=== PATIENT | male | born 1980 | race Two or more races ===

== ENCOUNTER 2023-11-03 23:33 | Emergency (ER) | payer OTHER ==
[~2023-11-03] VITALS: Ht 180.3 cm; Wt 106.6 kg
[2023-11-03] MEDS ORDERED: APRESOLINE 10MG10 MG PO (23:55)
[2023-11-03] MEDS ORDERED: ISOSORBIDE DINI30 MG (23:56)
[2023-11-03] MEDS ORDERED: ATORVASTATIN CA10 MG (23:57)
[2023-11-03] MEDS ORDERED: [UNRECOGNIZED DRUG - OTHER] (23:57)
[2023-11-03] MEDS ORDERED: ALDACTONE25 MG (23:58)
[2023-11-04] MEDS ORDERED: MORPHINE SULFATE 4 MG/ML VIAL IV STA (06:26)
[2023-11-04] MEDS ORDERED: ASPIRIN 325 MG TABLET PO STA (06:29)
[2023-11-04] MEDS ORDERED: DIPHENHYDRAMINE HCL 50 MG/ML VIAL 1ML IV STA (07:28)
[2023-11-04] MEDS ORDERED: EPINEPHRINE HCL/PF 1 MG/ML AMPUL SUBCUTANEO STA (07:30)
[2023-11-04 07:45] LABS: BILIRUBIN TOTAL 1.14 mg/dL (0.3-1.2); CALCIUM 9.5 mg/dL (8.5-10.1); CREATININE SERUM 1.53 mg/dL (0.70-1.30); GFR 49.92; GLOBULINA 3.3 G/DL (2.4-3.5); POTASSIUM 3.91 mEq/L (3.5-5.1); TOTAL PROTEIN 7.3 gm/dL (6.4-8.2)
[2023-11-04 07:47] LABS: INR 1.01; PARTIAL THROMBOPLASTIN TIME 27.5 SECONDS (22.0-34.0); PROTHROMBIN TIME 10.6 SECONDS (9.0-11.5)
[2023-11-04 07:48] LABS: HEMATOCRIT 41.9 % (39.0-48.0); HEMOGLOBIN 14.8 g/dL (13-16.00); MEAN CELL VOLUME 86.8 fL (80.0-100.00); MEAN CORPUSCULAR HEMOGLOBIN 30.6 pg (27.00-32.0); MEAN CORPUSCULAR HGB CONC 35.2 g/dl (32.0-36.0); PLATELET COUNT 194 K/uL (150-450); RED BLOOD COUNT 4.83 M/uL (4.00-6.00); RED CELL DISTRIBUTION WIDTH 12.9 % (11.5-14.5)
== END 2023-11-04 10:32 | disposition designated cancer center or children's hospital (05) ==
LOC: ER 23:33
DX: N48.30 Priapism, unspecified (principal)